=== PATIENT | female | born 1990 | race Caucasian/White ===

== ENCOUNTER 2017-04-11 03:50 | Emergency (ER) | payer MEDICAID ==
[~2017-04-11] VITALS: Ht 165.1 cm; Wt 70.8 kg
[2017-04-11 03:58] VITALS: BP 112/62
--- NOTE | 2017-04-11 07:05 | NUR ---
PATIENT LEFT WITHOUT BEING SEEN BY DR. WALDEN. NO FURTHER CARE PROVIDED FOR PATIENT.
== END 2017-04-11 07:05 | disposition left against medical advice (07) ==
LOC: MED 03:50
DX: R21 Rash and other nonspecific skin eruption (principal); R06.02 Shortness of breath; Z53.21 Procedure and treatment not carried out due to patient leaving prior to being seen by health care provider